=== PATIENT | female | born 1985 | race Two or more races ===

== ENCOUNTER 2016-09-12 14:35 | Inpatient (IN) | payer OTHER ==
[2016-09-12 18:33] VITALS: BMI 18.4
--- NOTE | 2016-09-12 20:08 | HP ---
COWS - Scale Resting Pulse: 2= [place] 101-120 Sweatin= Chills/Flushing Restless Observation: 3= Extraneous Movement Pupil Size: 0= Normal to Room Light Bone or Joint Aches: 2= Severe Diffuse Aches Runny Nose/ Eye Tearin= Nasal Congestion GI Upset > 30mins: 1= Stomach Cramp Tremor Observation: 2= Slight Tremor Visible Yawning Observation: 0= None Anxiety or Irritability: 2=Irritable/Anxious Goose Flesh Skin: 0=Smooth Skin COWS Score: 14 Admission [facility] Chief Complaint: WITHDRAWAL SX Allergies/Adverse Reactions: Allergies Allergy/AdvReac Type Severity Reaction Status Date / Time No Known Allergies Allergy Verified 09/12/16 19:40 History of Present Illness: 30 YEARS OLD FEMALE WITH LONG HISTORY OF OPIOID NICOTINE DEPENDENCE DENIES MEDICAL DENIES MENTAL ILLNESS IS ADMITTED TO DETOX Exam Limitations: No Limitations - Ebola screening Have you traveled outside of the country in the last 21 days: No Have you had contact with anyone from an Ebola affected area: No Have you been sick,other than usual withdrawal symptoms: No Do you have a fever: No - Review of Systems Constitutional: Chills, Changes in sleep, Weight Stable EENT: reports: No Symptoms Reported Respiratory: reports: No Symptoms reported Cardiac: reports: No Symptoms Reported GI: reports: Nausea, Poor Fluid Intake, Abdominal cramping : reports: No Symptoms Reported Musculoskeletal: reports: Back Pain, Joint Pain, Muscle Pain, Neck Pain Integumentary: reports: Change in Color (IV OPIOID HANDS) Neuro: reports: Tremors Endocrine: reports: No Symptoms Reported Psychiatric: reports: Judgement Intact Other Systems: Reviewed and Negative Patient History - Patient Medical History Hx Anemia: No Hx Asthma: No Hx Chronic Obstructive Pulmonary Disease (COPD): No Hx Cancer: No Hx Cardiac Disorders: No Hx Congestive Heart Failure: No Hx Hypertension: No Hx Hypercholesterolemia: No Hx Pacemaker: No HX Cerebrovascular Accident: No Hx Seizures: No Hx Dementia: No Hx Diabetes: No Hx Gastrointestinal Disorders: No Hx Liver Disease: No Hx Genitourinary Disorders: No Hx Sexually Transmitted Disorders: No Hx Renal Disease (ESRD): No Hx Thyroid Disease: No Hx Human Immunodeficiency Virus (HIV): No (LAST 01/07) Hx Hepatitis C: No Hx Depression: Yes (ANXIETY) Hx Suicide Attempt: No Hx Bipolar Disorder: No Hx Schizophrenia: No - Patient Surgical History Past Surgical History: Yes Hx Neurologic Surgery: No Hx Cataract Extraction: No Hx Cardiac Surgery: No Hx Lung Surgery: No Hx Breast Surgery: Yes (Augmentation in 2011) Hx Breast Biopsy: No Hx Abdominal Surgery: No Hx Appendectomy: No Hx Cholecystectomy: No Hx Genitourinary Surgery: No Hx Section: No Hx Orthopedic Surgery: No Hx Hysterectomy: No Anesthesia Reaction: No - PPD History Previous Implant?: Yes Documented Results: Negative w/proof Implanted On Prior [facility] Admission?: Yes Date: 03/24/16 PPD to be Administered?: No - Reproductive History Patient is a Female of Child Bearing Age (11 -55 yrs old): Yes Last Menstrual Period: 09/13/11 Patient : No - Smoking Cessation Smoking history: Current every day smoker Have you smoked in the past 12 months: Yes Aproximately how many cigarettes per day: 10 Cigars Per Day: 0 Hx Chewing Tobacco Use: No Initiated information on smoking cessation: Yes 'Breaking Loose' booklet given: 09/12/16 - Substance & Tx. History Hx Alcohol Use: No Hx Substance Use: Yes Substance Use Type: Cocaine, Marijuana, Opiates, Tranquilizers Hx Substance Use Treatment: Yes - Substances Abused Alprazolam (Xanax) Route: Oral Frequency: 3-6 times per week Amount used: 2mg Age of first use: 22 Date of Last Use: 09/11/16 Heroin Route: Injection Frequency: Daily Amount used: 20 BAGS Age of first use: 23 Date of Last Use: 09/11/16 Cocaine Route: Injection Frequency: Daily Amount used: 100$ Age of first use: 18 Date of Last Use: 09/12/16 Family Disease History - Family Disease History Family Disease History: Other: Mother ( OVER DOSE) Admission Physical Exam [facility] - Vital Signs Vital Signs: Vital Signs - 24 hr 09/12/16 18:31 Temperature 96.0 F L Pulse Rate 103 H Respiratory 18 Rate Blood Pressure 104/61 - Physical General Appearance: Yes: Appropriately Dressed, Mild Distress, Thin, Tremorous, Irritable, Sweating, Anxious HEENTM: Yes: Hearing grossly Normal, Normal ENT Inspection, Normocephalic, Normal Voice Respiratory: Yes: Chest Non-Tender, Lungs Clear, Normal Breath Sounds, No Respiratory Distress, No Accessory Muscle Use Neck: Yes: Supple, Trachea in good position Breast: Yes: Breasts Symetrical Cardiology: Yes: Regular Rhythm, S1, S2, Tachycardia (COCAINE) Abdominal: Yes: Non Tender, Soft Genitourinary: Yes: Within Normal Limits Back: Yes: Normal Inspection Musculoskeletal: Yes: full range of Motion, Gait Steady, Back pain, Muscle Pain Extremities: Yes: Normal Range of Motion, Non-Tender, Tremors, Other (HANDS IV OPIOID COCAINE) Neurological: Yes: Alert, Motor Strength 5/5, Normal Mood/Affect, Normal Response Integumentary: Yes: Warm Lymphatic: Yes: Within Normal Limits - Diagnostic (1) Nicotine dependence Current Visit: Yes Status: Acute Qualifiers: Nicotine product type: cigarettes Substance use status: in withdrawal Qualified Code(s): F17.213 - Nicotine dependence, cigarettes, with withdrawal (2) Opioid dependence with withdrawal Current Visit: Yes Status: Acute (3) Cocaine dependence, uncomplicated Current Visit: Yes Status: Chronic (4) Cannabis dependence, uncomplicated Current Visit: Yes Status: Chronic Cleared for Admission [facility] - Detox or Rehab [facility] Level of Care: Medically Managed Detox Regimen/Protocol: Methadone [facility] Breath Alcohol Content Breath Alcohol Content: 0 Urine Pregancy Test - Result Urine Test Results: Negative- NO Line Present Urine Drug Screen - Results Drug Screen Negative: No Urine Drug Screen Results: THC-Marijuana, DELIO-Cocaine, OPI-Opiates, AMP- Amphetamines, BZO-Benzodiazepines, OXY-Oxycodone
[2016-09-12] MEDS ORDERED: P-EPHED 60MG/TRIPROLIDI 2.5MG TABLET PO PRN (20:26)
[2016-09-12] MEDS ORDERED: MENTHOL/PHENOL 1 EACH UD MM PRN (20:26)
[2016-09-12] MEDS ORDERED: LOPERAMIDE HCL 2 MG CAPSULE PO PRN (20:26)
[2016-09-12] MEDS ORDERED: MAGNESIUM HYDROX 2400MG/30ML ORAL SUSPENSION 30 ML CUP PO PRN (20:26)
[2016-09-12] MEDS ORDERED: MAGNESIUM CITRATE 300 ML BOTTLE PO PRN (20:26)
[2016-09-12] MEDS ORDERED: METHADONE HCL 10 MG TABLET (FOR DETOX USE ONLY) PO ONE ×2 (20:26→23:00)
[2016-09-12] MEDS ORDERED: diphenhydrAMINE HCL 50 MG CAPSULE PO PRN (20:26)
[2016-09-12] MEDS ORDERED: NICOTINE POLACRILEX 2 MG GUM BC PRN (20:26)
[2016-09-12] MEDS ORDERED: MAG HYDROX/AL HYDROX/SIMETH 30 ML UNIT-DOSE CUP PO PRN (20:26)
[2016-09-12] MEDS ORDERED: guaiFENesin/D-METHORPHAN HB 10 ML UNIT-DOSE CUPS PO PRN (20:26)
[2016-09-12] MEDS ORDERED: IBUPROFEN 400 MG TABLET (FP) PO PRN (20:26)
[2016-09-12] MEDS ORDERED: ACETAMINOPHEN 325 MG TABLET (FP) PO PRN (20:26)
[2016-09-12] MEDS: diazePAM 5 MG TABLET PO PRN (21:00)
[2016-09-12] MEDS: THIAMINE HCL 100 MG TABLET (FP) PO SCH (22:45)
[2016-09-13] MEDS ORDERED: METHADONE HCL 10 MG TABLET (FOR DETOX USE ONLY) PO ONE (10:00)
[2016-09-13 10:10] LABS: MCHC 32.9 g/dl (32.0-36.0); MEAN PLT VOLUME 8.8 fl (7.5-11.1); PLATELET COUNT 216 K/MM3 (134-434); RDW 13.4 % (11.6-15.6); WHITE BLOOD COUNT 6.9 K/mm3 (4.0-10.0)
--- NOTE | 2016-09-13 10:18 | PN ---
[facility] COWS - Scale Resting Pulse: 1= [place] 81-100 Sweatin=Flushed/Facial Moisture Restless Observation: 1= Difficult to Sit Still Pupil Size: 1= Pupils >than Normal Bone or Joint Aches: 2= Severe Diffuse Aches Runny Nose/ Eye Tearin= Nasal Congestion GI Upset > 30mins: 1= Stomach Cramp Tremor Observation of Outstretched Hands: 1= Tremor [place], Not Seen Yawning Observation: 0= None Anxiety or Irritability: 2=Irritable/Anxious Goose Flesh Skin: 0=Smooth Skin COWS Score: 12 BHS Progress Note (SOAP) Subjective: interrupted, sleep, sweats, shakes , bodyaches Objective: 09/13/16 10:18 Vital Signs Temperature 96.8 F L 09/13/16 06:35 Pulse Rate 84 09/13/16 06:35 Respiratory Rate 16 09/13/16 06:35 Blood Pressure 96/56 09/13/16 06:35 O2 Sat by Pulse Oximetry (%) Laboratory Tests 09/13/16 07:00 WBC 6.9 RBC 4.73 Hgb 13.2 D Hct 40.2 MCV 85.0 MCHC 32.9 RDW 13.4 Plt Count 216 MPV 8.8 pending labs pt aox3 lying in bed in nad . Assessment: 09/13/16 10:19 withdrawal sx's Plan: cont. detox increase fluids f/up pending labs ensure bid
[2016-09-13 10:36] LABS: CALCIUM 9.2 mg/dL (8.5-10.1)
[2016-09-13 10:55] LABS: ALBUMIN 3.2 g/dl (3.4-5.0); ALK PHOS 78 U/L (45-117); ANION GAP 9 (8-16); BILIRUBIN,TOTAL 0.3 mg/dL (0.2-1.0); CO2 28 mmol/L (21-32); COCKROFT - GAULT 97.4865; CREATININE 0.7 mg/dL (0.55-1.02); GLUCOSE,RANDOM 89 mg/dL (74-106); SGOT/AST 29 U/L (15-37); SGPT/ALT 28 U/L (12-78); TOT PROT 7.5 g/dl (6.4-8.2)
[2016-09-13] MEDS: NICOTINE 14 MG/24 HOURS TOPICAL PATCH TD SCH (10:57)
[2016-09-13] MEDS: PRENATAL VITAMINS W/ FOLIC ACID TABLET (FP) PO SCH (10:57)
--- NOTE | 2016-09-13 11:45 | EKG ---
Test Reason : Blood Pressure : / mmHG Vent. Rate : 075 BPM Atrial Rate : 075 BPM P-R Int : 152 ms QRS Dur : 092 ms QT Int : 394 ms P-R-T Axes : 066 079 064 degrees QTc Int : 439 ms NORMAL SINUS RHYTHM NORMAL ECG NO PREVIOUS ECGS AVAILABLE Confirmed by MONIKA BATES MD ([id number]) on 09/13/2016 11:44:55 AM Referred By: Cj Hammond Confirmed By:MONIKA BATES MD
[2016-09-13] MEDS: diazePAM 5 MG TABLET PO PRN (22:35)
[2016-09-13] MEDS: THIAMINE HCL 100 MG TABLET (FP) PO SCH (22:36)
[2016-09-14] MEDS ORDERED: METHADONE HCL 5 MG TABLET (FOR DETOX USE ONLY) PO ONE (10:00)
[2016-09-14] MEDS: PRENATAL VITAMINS W/ FOLIC ACID TABLET (FP) PO SCH (10:39)
[2016-09-14] MEDS: diazePAM 5 MG TABLET PO PRN (10:40)
[2016-09-14 10:52] VITALS: TEMP 97.9
[2016-09-14] MEDS: NICOTINE 14 MG/24 HOURS TOPICAL PATCH TD SCH (11:18)
--- NOTE | 2016-09-14 11:30 | PN ---
[facility] COWS - Scale Resting Pulse: 1= [place] 81-100 Sweatin=Flushed/Facial Moisture Restless Observation: 1= Difficult to Sit Still Pupil Size: 0= Normal to Room Light Bone or Joint Aches: 2= Severe Diffuse Aches Runny Nose/ Eye Tearin= Runny Nose/Eyes GI Upset > 30mins: 1= Stomach Cramp Tremor Observation of Outstretched Hands: 2= Slight Tremor Visible Yawning Observation: 2= >3x During Session Anxiety or Irritability: 2=Irritable/Anxious Goose Flesh Skin: 0=Smooth Skin COWS Score: 15 BHS Progress Note (SOAP) Subjective: sweats shakes interrupted sleep agitation anxiety body aches Objective: 09/14/16 11:28 Vital Signs Temperature 97.9 F 09/14/16 10:51 Pulse Rate 82 09/14/16 10:51 Respiratory Rate 16 09/14/16 10:51 Blood Pressure 105/79 09/14/16 10:51 O2 Sat by Pulse Oximetry (%) Laboratory Tests 09/13/16 09/13/16 09/13/16 07:00 07:00 07:00 WBC 6.9 RBC 4.73 Hgb 13.2 D Hct 40.2 MCV 85.0 MCHC 32.9 RDW 13.4 Plt Count 216 MPV 8.8 Sodium 140 Potassium 5.0 D Chloride 103 Carbon Dioxide 28 Anion Gap 9 BUN 10 D Creatinine 0.7 Creat Clearance w eGFR > 60 Random Glucose 89 Calcium 9.2 Total Bilirubin 0.3 D AST 29 ALT 28 Alkaline Phosphatase 78 D Total Protein 7.5 D Albumin 3.2 L RPR Titer Nonreactive labs pending awake/alert ambulating no acute distress Assessment: 09/14/16 11:29 withdrawal sx Plan: continue detox increase fluids
[2016-09-14 14:24] VITALS: BP 108/72; PULSE 78
--- NOTE | 2016-09-14 14:30 | PN ---
[facility] Progress Note Note: pt states to RN that she is not ready for detox and wants to leave to get high. Pt refused to listen to staff and counselor tried to encouraged her to stay but insisted on leaving. Pt signed AMA.
--- NOTE | 2016-09-14 14:32 | DS ---
[facility] Detox Discharge Summary Admission Date: 09/12/16 Discharge Date: 09/14/16 - History Present History: Cannabis Dependence, Cocaine Dependence, Opioid Dependence - Physical Exam Results Vital Signs: Vital Signs Temperature 97.9 F 09/14/16 14:23 Pulse Rate 78 09/14/16 14:23 Respiratory Rate 16 09/14/16 14:23 Blood Pressure 108/72 09/14/16 14:23 O2 Sat by Pulse Oximetry (%) - Treatment Hospital Course: Discharged Condition Good - Medication Discharge Medications: Ambulatory Orders NK [No Known Home Medication] 09/12/16 - Diagnosis (1) Nicotine dependence Current Visit: Yes Status: Chronic Qualifiers: Nicotine product type: cigarettes Substance use status: uncomplicated Qualified Code(s): F17.210 - Nicotine dependence, cigarettes, uncomplicated (2) Opioid dependence with withdrawal Current Visit: Yes Status: Chronic (3) Cannabis dependence, uncomplicated Current Visit: Yes Status: Chronic (4) Cocaine dependence, uncomplicated Current Visit: Yes Status: Chronic (5) Multiple abrasions Current Visit: No Status: Acute (6) Drug-induced mood disorder Current Visit: No Status: Suspected - AMA Did Patient Leave Against Medical Advice: Yes
[2016-09-15] MEDS ORDERED: METHADONE HCL 5 MG TABLET (FOR DETOX USE ONLY) PO ONE (10:00)
[2016-09-16] MEDS ORDERED: METHADONE HCL 10 MG TABLET (FOR DETOX USE ONLY) PO ONE (10:00)
[2016-09-17] MEDS ORDERED: METHADONE HCL 5 MG TABLET (FOR DETOX USE ONLY) PO ONE (06:00)
== END 2016-09-14 14:30 | disposition left against medical advice (07) | DRG 770 ==
LOC: YASAS 14:35 → Y6N 19:55
PROVIDERS: ADMIT Internal Medicine; ATTEND Internal Medicine Addiction Medicine
PROC: HZ2ZZZZ Detoxification Services for Substance Abuse Treatment (ICD-10-PCS; principal; 2016-09-12)
DX: F11.23 Opioid dependence with withdrawal (principal); F14.20 Cocaine dependence, uncomplicated; F12.20 Cannabis dependence, uncomplicated; F17.210 Nicotine dependence, cigarettes, uncomplicated; F19.24 Other psychoactive substance dependence with psychoactive substance-induced mood disorder; R00.0 Tachycardia, unspecified
CPT/HCPCS: 36415; 80053; 85027; 86593; 93005; 93010

== ENCOUNTER 2017-09-25 16:37 | Inpatient (IN) | payer OTHER ==
[2017-09-25 17:55] VITALS: BMI 17.9
--- NOTE | 2017-09-25 20:44 | HP ---
COWS - Scale Resting Pulse: 1= [place] 81-100 Sweatin= Chills/Flushing Restless Observation: 1= Difficult to Sit Still Pupil Size: 1= Pupils >than Normal Bone or Joint Aches: 1= Mild Discomfort Runny Nose/ Eye Tearin= None GI Upset > 30mins: 0= None Tremor Observation: 1= Tremor [place], Not Seen Yawning Observation: 1= 1-2x During Session Anxiety or Irritability: 1=Feels Anxious/Irritable Goose Flesh Skin: 0=Smooth Skin COWS Score: 8 CIWA Score - CIWA Score Nausea/Vomitin-No Nausea/No Vomiting Muscle Tremors: 2 Anxiety: 2 Agitation: 2 Paroxysmal Sweats: 2 Orientation: 0-Oriented Tacttile Disturbances: 1-Very Mild Itch/Numbness Auditory Disturbances: 0-None Visual Disturbances: 0-None Headache: 0-None Present CIWA-Ar Total Score: 9 Admission ROS S - HPI Chief Complaint: withdrawal symptoms Allergies/Adverse Reactions: Allergies Allergy/AdvReac Type Severity Reaction Status Date / Time No Known Allergies Allergy Verified 09/25/17 19:05 History of Present Illness: 31 yo female with hc of xanax , IV heroin, and cocaine dependence is here seeking detox. Denies suicidal / homicidal ideation or suicide attempts. Reports no other medical or psychiatric history aside from Insomnia. Reports period of hallucinations while consuming cocaine. Last detox at [facility] 2 months ago. Reports no significant period of sobriety. Denies hx of seizures, blackouts or overdose. Exam Limitations: No Limitations - Ebola screening Have you traveled outside of the country in the last 21 days: No Have you had contact with anyone from an Ebola affected area: No Have you been sick,other than usual withdrawal symptoms: No Do you have a fever: No - Review of Systems Constitutional: Chills, Loss of Appetite EENT: reports: No Symptoms Reported Respiratory: reports: No Symptoms reported Cardiac: reports: No Symptoms Reported GI: reports: Poor Appetite, Poor Fluid Intake : reports: No Symptoms Reported Musculoskeletal: reports: Back Pain, Joint Pain Integumentary: reports: No Symptoms Reported Neuro: reports: No Symptoms reported Endocrine: reports: Increased Thirst Hematology: reports: No Symptoms Reported Psychiatric: reports: Orientated x3, Anxious Other Systems: Reviewed and Negative Patient History - Patient Medical History Hx Anemia: No Hx Asthma: No Hx Chronic Obstructive Pulmonary Disease (COPD): No Hx Cancer: No Hx Cardiac Disorders: No Hx Congestive Heart Failure: No Hx Hypertension: No Hx Hypercholesterolemia: No Hx Pacemaker: No HX Cerebrovascular Accident: No Hx Seizures: No Hx Dementia: No Hx Diabetes: No Hx Gastrointestinal Disorders: No Hx Liver Disease: No Hx Genitourinary Disorders: No Hx Sexually Transmitted Disorders: No Hx Renal Disease (ESRD): No Hx Thyroid Disease: No Hx Human Immunodeficiency Virus (HIV): No Hx Hepatitis C: No Hx Depression: Yes (ANXIETY) Hx Suicide Attempt: No Hx Bipolar Disorder: No Hx Schizophrenia: No - Patient Surgical History Past Surgical History: Yes Hx Neurologic Surgery: No Hx Cataract Extraction: No Hx Cardiac Surgery: No Hx Lung Surgery: No Hx Breast Surgery: Yes (Augmentation in 2011) Hx Breast Biopsy: No Hx Abdominal Surgery: No Hx Appendectomy: No Hx Cholecystectomy: No Hx Genitourinary Surgery: No Hx Section: No Hx Orthopedic Surgery: No Hx Hysterectomy: No Anesthesia Reaction: No - PPD History Previous Implant?: Yes Documented Results: Negative w/proof Date: 03/24/16 PPD to be Administered?: Yes - Reproductive History Patient is a Female of Child Bearing Age (11 -55 yrs old): Yes Last Menstrual Period: 09/12/17 (amonorrhea) Patient : No - Smoking Cessation Smoking history: Current every day smoker Have you smoked in the past 12 months: Yes Aproximately how many cigarettes per day: 10 Cigars Per Day: 0 Hx Chewing Tobacco Use: No Initiated information on smoking cessation: Yes 'Breaking Loose' booklet given: 09/25/17 - Substance & Tx. History Hx Alcohol Use: Yes Hx Substance Use: Yes Substance Use Type: Cocaine, Heroin, Tranquilizers Hx Substance Use Treatment: Yes ([facility] 2 months ago ) - Substances Abused Heroin Route: Injection Frequency: Daily Amount used: 20 BAGS Age of first use: 26 Date of Last Use: 09/25/17 Alprazolam (Xanax) Route: Oral Frequency: Daily Amount used: 4mg Age of first use: 23 Date of Last Use: 09/25/17 Cocaine Route: Injection Frequency: Daily Amount used: 0.5mg Age of first use: 17 Date of Last Use: 09/25/17 Family Disease History - Family Disease History Family Disease History: Diabetes: Father (alive ), Heart Disease: Father, Other : Father, Mother ( OVER DOSE) Admission Physical Exam [facility] - Vital Signs Vital Signs: Vital Signs - 24 hr 09/25/17 17:53 Temperature 98.7 F Pulse Rate 86 Respiratory 18 Rate Blood Pressure 104/67 - Physical General Appearance: Yes: Disheveled, Mild Distress, Thin, Anxious HEENTM: Yes: EOMI, Hearing grossly Normal, Normal ENT Inspection, Normocephalic , Normal Voice, MARY, Pharynx Normal, Tm's normal Respiratory: Yes: Chest Non-Tender, Lungs Clear, Normal Breath Sounds, No Respiratory Distress, No Accessory Muscle Use Neck: Yes: Within Normal Limits Breast: Yes: Breast Exam Deferred Cardiology: Yes: Regular Rhythm, Regular Rate Abdominal: Yes: Normal Bowel Sounds, Non Tender, Flat, Soft Genitourinary: Yes: Within Normal Limits Back: Yes: Normal Inspection Musculoskeletal: Yes: full range of Motion, Gait Steady, Pelvis Stable Extremities: Yes: Normal Capillary Refill, Normal Inspection, Normal Range of Motion, Non-Tender Neurological: Yes: steam gigger II-XII NML intact, Fully Oriented, Alert, Motor Strength 5/5, Depressed Affect Integumentary: Yes: Track Felipe (bilateral forearms and hands,no signs of infection present) Lymphatic: Yes: Within Normal Limits - Diagnostic (1) IVDU (intravenous drug user) Current Visit: Yes Status: Acute (2) Sedative, hypnotic or anxiolytic dependence with withdrawal, unspecified Current Visit: Yes Status: Acute (3) Amenorrhea Current Visit: Yes Status: Acute (4) Cocaine dependence, uncomplicated Current Visit: Yes Status: Chronic (5) Nicotine dependence Current Visit: Yes Status: Chronic Qualifiers: Nicotine product type: cigarettes Substance use status: uncomplicated Qualified Code(s): F17.210 - Nicotine dependence, cigarettes, uncomplicated (6) Opioid dependence with withdrawal Current Visit: Yes Status: Acute (7) Low BMI Current Visit: Yes Status: Acute Cleared for Admission [facility] - Detox or Rehab [facility] Level of Care: Medically Supervised Detox Regimen/Protocol: Methadone/Valium [facility] Breath Alcohol Content Breath Alcohol Content: 0 Urine Pregancy Test - Result Urine Test Results: Negative- NO Line Present Urine Drug Screen - Results Drug Screen Negative: No Urine Drug Screen Results: THC-Marijuana, DELIO-Cocaine, OPI-Opiates, BZO- Benzodiazepines, MTD-Methadone, OXY-Oxycodone
[2017-09-25] MEDS ORDERED: guaiFENesin/D-METHORPHAN HB 10 ML UNIT-DOSE CUPS PO PRN (20:48)
[2017-09-25] MEDS ORDERED: NICOTINE POLACRILEX 2 MG GUM BC PRN (20:48)
[2017-09-25] MEDS ORDERED: MENTHOL/PHENOL 1 EACH UD MM PRN (20:48)
[2017-09-25] MEDS ORDERED: P-EPHED 60MG/TRIPROLIDI 2.5MG TABLET PO PRN (20:48)
[2017-09-25] MEDS ORDERED: MAGNESIUM HYDROX 2400MG/30ML ORAL SUSPENSION 30 ML CUP PO PRN (20:48)
[2017-09-25] MEDS ORDERED: hydrOXYzine PAMOATE 50 MG CAPSULE (FP) PO PRN (20:48)
[2017-09-25] MEDS ORDERED: IBUPROFEN 400 MG TABLET (FP) PO PRN (20:48)
[2017-09-25] MEDS ORDERED: MAGNESIUM CITRATE 300 ML BOTTLE PO PRN (20:48)
[2017-09-25] MEDS ORDERED: diazePAM 5 MG TABLET PO PRN (20:48)
[2017-09-25] MEDS ORDERED: diazePAM 5 MG TABLET PO ONE (20:48)
[2017-09-25] MEDS ORDERED: ACETAMINOPHEN 325 MG TABLET (FP) PO PRN (20:48)
[2017-09-25] MEDS ORDERED: LOPERAMIDE HCL 2 MG CAPSULE PO PRN (20:48)
[2017-09-25] MEDS ORDERED: MAG HYDROX/AL HYDROX/SIMETH 30 ML UNIT-DOSE CUP PO PRN (20:48)
[2017-09-25] MEDS ORDERED: MELATONIN 5 MG TABLETS PO PRN (22:00)
[2017-09-25] MEDS ORDERED: METHADONE HCL 10 MG TABLET (FOR DETOX USE ONLY) ONE (22:54)
[2017-09-25] MEDS: METHADONE HCL 10 MG TABLET (FOR DETOX USE ONLY) PO ONE (22:59)
[2017-09-25] MEDS ORDERED: METHADONE HCL 10 MG TABLET (FOR DETOX USE ONLY) PO ONE (23:00)
[2017-09-25] MEDS: diazePAM 5 MG TABLET PO SCH (23:00)
[2017-09-25] MEDS: THIAMINE HCL 100 MG TABLET (FP) PO SCH (23:18)
[2017-09-26 02:22] LABS: URINE APPEARANCE CLOUDY; URINE BILIRUBIN NEGATIVE (<2.0 mg/dL); URINE BLOOD 2+ (NEGATIVE); URINE COLOR AMBER; URINE GLUCOSE (UA) NEGATIVE (NEGATIVE); URINE KETONE NEGATIVE (NEGATIVE); URINE LEUK ESTERASE TRACE (NEGATIVE); URINE NITRITE NEGATIVE (NEGATIVE); URINE PROTEIN NEGATIVE (NEGATIVE); URINE UROBILINOGEN 4.0 E.U/dl mg/dL (0.2-1.0)
[2017-09-26 02:55] LABS: CALCIUM OXALATE CRYSTALS MODERATE /hpf (NONE SEEN); EPI CELLS RARE /HPF (FEW); URINE MUCUS MODERATE
[2017-09-26] MEDS: diazePAM 5 MG TABLET PO SCH ×3 (06:01→22:45)
--- NOTE | 2017-09-26 09:37 | PN ---
[facility] CIWA - CIWA Score Nausea/Vomitin-No Nausea/No Vomiting Muscle Tremors: 3 Anxiety: 2 Agitation: 2 Paroxysmal Sweats: 1-Minimal Palms Moist Orientation: 0-Oriented Tacttile Disturbances: 1-Very Mild Itch/Numbness Auditory Disturbances: 0-None Visual Disturbances: 0-None Headache: 0-None Present CIWA-Ar Total Score: 9 [facility] COWS - Scale Resting Pulse: 0= [place] 80 or Below Sweatin= Chills/Flushing Restless Observation: 1= Difficult to Sit Still Pupil Size: 0= Normal to Room Light Bone or Joint Aches: 1= Mild Discomfort Runny Nose/ Eye Tearin= Nasal Congestion GI Upset > 30mins: 2= Nausea/Diarrhea Tremor Observation of Outstretched Hands: 1= Tremor [place], Not Seen Yawning Observation: 1= 1-2x During Session Anxiety or Irritability: 2=Irritable/Anxious Goose Flesh Skin: 0=Smooth Skin COWS Score: 10 [facility] Progress Note (SOAP) Subjective: low energy sweat tremor gi distress irritable anxiety restlessness Objective: 09/26/17 09:36 Vital Signs Temperature 97.7 F 09/26/17 09:26 Pulse Rate 75 09/26/17 09:26 Respiratory Rate 16 09/26/17 09:26 Blood Pressure 103/73 09/26/17 09:26 O2 Sat by Pulse Oximetry (%) Laboratory Last Values Urine Color [place] 09/25/17 Unknown Urine Appearance Cloudy 09/25/17 Unknown Urine pH 6.0 (5.0-8.0) 09/25/17 Unknown Ur Specific [place] 1.024 (1.001-1.035) 09/25/17 Unknown Urine Protein Negative (NEGATIVE) 09/25/17 Unknown Urine Glucose (UA) Negative (NEGATIVE) 09/25/17 Unknown Urine Ketones Negative (NEGATIVE) 09/25/17 Unknown Urine Blood 2+ (NEGATIVE) H 09/25/17 Unknown Urine Nitrite Negative (NEGATIVE) 09/25/17 Unknown Urine Bilirubin Negative (<2.0 mg/dL) 09/25/17 Unknown Urine Urobilinogen 4.0 e.u/dl mg/dL (0.2-1.0) H 09/25/17 Unknown Ur Leukocyte Esterase Trace (NEGATIVE) 09/25/17 Unknown Urine WBC (Auto) 6 /hpf (3-5) 09/25/17 Unknown Urine RBC (Auto) 49 /hpf (0-3) 09/25/17 Unknown Ur Epithelial Cells Rare /HPF (FEW) 09/25/17 Unknown Calcium Oxalate Crystal Moderate /hpf (NONE SEEN) 09/25/17 Unknown Urine Mucus Moderate 09/25/17 Unknown lab n oted increase oral fluid Assessment: 09/26/17 09:39 alcohol and opiate withdrawal sx 09/26/17 09:39 oxalate urination Plan: continue detox increase oral fluid
[2017-09-26] MEDS ORDERED: METHADONE HCL 10 MG TABLET (FOR DETOX USE ONLY) PO SCH (10:00)
[2017-09-26 10:13] LABS: HEMATOCRIT 35.1 % (32.4-45.2); HEMOGLOBIN 11.5 GM/dL (10.7-15.3); MCH 27.8 pg (25.7-33.7); MCHC 32.8 g/dl (32.0-36.0); MEAN CELL VOLUME 84.6 fl (80-96); MEAN PLT VOLUME 8.7 fl (7.5-11.1); PLATELET COUNT 211 K/MM3 (134-434); RBC 4.15 M/mm3 (3.60-5.2); RDW 14.7 % (11.6-15.6); WHITE BLOOD COUNT 5.2 K/mm3 (4.0-10.0)
[2017-09-26] MEDS: PRENATAL VITAMINS W/ FOLIC ACID TABLET (FP) PO SCH (11:06)
[2017-09-26] MEDS: NICOTINE 14 MG/24 HOURS TOPICAL PATCH TD SCH (11:07)
--- NOTE | 2017-09-26 11:18 | CONSULT ---
[facility] Psychiatric Consult - Data Date of interview: 09/26/17 Admission source: [facility] Identifying data: Patient is a 31 year old single female, mother of one, unemployed, homeless, and not receiving financial assistance. This is one of multiple admissions for patient. Pt. admitted to for cocaine, opiate, and benzodiazepine dependence. Substance Abuse History: Following information confirmed with Ms. Helm: - Smoking Cessation. Smoking history: Current every day smoker. Have you smoked in the past 12 months: Yes. Aproximately how many cigarettes per day: 10. Cigars Per Day: 0. Hx Chewing Tobacco Use: No. Initiated information on smoking cessation: Yes. 'Breaking Loose' booklet given: 09/25/17. - Substance & Tx. History. Hx Alcohol Use: Yes. Hx Substance Use: Yes. Substance Use Type : Cocaine, Heroin, Tranquilizers. Hx Substance Use Treatment: Yes ([facility] 2 months ago ). - Substances Abused. Heroin. Route: Injection. Frequency : Daily. Amount used: 20 BAGS. Age of first use: 26. Date of Last Use: . Alprazolam (Xanax). Route: Oral. Frequency: Daily. Amount used: 4mg. Age of first use: 23. Date of Last Use: 09/25/17. Cocaine. Route: Injection. Frequency: Daily. Amount used: 0.5mg. Age of first use: 17. Date of Last Use: 09/25/17 Medical History: Denies. Psychiatric History: Patient reports one psychiatric hospitalization at 11 years of age after overdosing on pills which resulted in a 2 week admission at a psychiatric facility in [place].Pt. denies h/o psychiatric hospitalization as adult. States she was at [facility] for three days in the psychiatric emergency room approximately three months ago after experiencing auditory hallucinations from drug use. Patient denies h/o outpatient care and denies taking psychotropic medications. Physical/Sexual Abuse/Trauma History: Denies. Mental Status Exam - Mental Status Exam Alert and Oriented to: Time, Place, Person Cognitive Function: Good Patient Appearance: Well Groomed Mood: Euthymic Affect: Mood Congruent Patient Behavior: Cooperative Speech Pattern: Appropriate Voice Loudness: Normal Thought Process: Intact, Goal Oriented Thought Disorder: Not Present Hallucinations: Denies Suicidal Ideation: Denies Homicidal Ideation: Denies Insight/Judgement: Poor Sleep: Poorly Appetite: Fair Muscle strength/Tone: Normal Gait/Station: Normal Psychiatric Findings - Problem List (Procious 1, 2,3) (1) Opioid dependence with withdrawal Current Visit: Yes Status: Acute (2) Sedative, hypnotic or anxiolytic dependence with withdrawal, unspecified Current Visit: Yes Status: Acute (3) Cocaine dependence, uncomplicated Current Visit: Yes Status: Chronic (4) Nicotine dependence Current Visit: Yes Status: Chronic Qualifiers: Nicotine product type: cigarettes Substance use status: uncomplicated Qualified Code(s): F17.210 - Nicotine dependence, cigarettes, uncomplicated (5) Substance-induced sleep disorder Current Visit: Yes Status: Acute (6) Nicotine dependence Current Visit: Yes Status: Chronic (7) Drug-induced mood disorder Current Visit: Yes Status: Suspected - Initial Treatment Plan Initial Treatment Plan: Psychoeducation provided. Detoxification in progress. Trazodone 50mg qhs ordered. Benefits and side effects discussed. Verbal consent given. Will continue to monitor.
[2017-09-26 11:57] LABS: CHLORIDE 107 mmol/L (98-107); POTASSIUM 3.9 mmol/L (3.5-5.1); SODIUM 140 mmol/L (136-145)
[2017-09-26 12:28] LABS: ALBUMIN 3.1 g/dl (3.4-5.0); ALK PHOS 74 U/L (45-117); ANION GAP 8 (8-16); BILIRUBIN,TOTAL 0.2 mg/dL (0.2-1.0); BLOOD UREA NITROGEN 7 mg/dL (7-18); CALCIUM 8.9 mg/dL (8.5-10.1); CO2 25 mmol/L (21-32); CREATININE 0.6 mg/dL (0.55-1.02); GLUCOSE,RANDOM 88 mg/dL (74-106); SGOT/AST 26 U/L (15-37); SGPT/ALT 27 U/L (12-78); TOT PROT 7.2 g/dl (6.4-8.2)
--- NOTE | 2017-09-26 13:30 | EKG ---
Test Reason : Blood Pressure : / mmHG Vent. Rate : 069 BPM Atrial Rate : 069 BPM P-R Int : 172 ms QRS Dur : 090 ms QT Int : 424 ms P-R-T Axes : 066 076 073 degrees QTc Int : 454 ms NORMAL SINUS RHYTHM NORMAL ECG WHEN COMPARED WITH ECG OF 12-SEP-2016 19:56, NO SIGNIFICANT CHANGE WAS FOUND Confirmed by MD BHAVANI, NIKHIL ([id number]) on 09/26/2017 1:29:47 PM Referred By: Confirmed By:NIKHIL BECKHAM MD
[2017-09-26] MEDS: THIAMINE HCL 100 MG TABLET (FP) PO SCH (22:45)
[2017-09-26] MEDS: traZODone HCL 50 MG TABLET (FP) PO SCH (22:45)
[2017-09-27] MEDS: PRENATAL VITAMINS W/ FOLIC ACID TABLET (FP) PO SCH (10:34)
[2017-09-27] MEDS: diazePAM 5 MG TABLET PO SCH ×2 (10:34→22:54)
[2017-09-27] MEDS: METHADONE HCL 5 MG TABLET (FOR DETOX USE ONLY) PO SCH (10:34)
[2017-09-27] MEDS: NICOTINE 14 MG/24 HOURS TOPICAL PATCH TD SCH (10:35)
[2017-09-27] MEDS ORDERED: BACLOFEN 10 MG TABLET (FP) PO PRN (11:48)
--- NOTE | 2017-09-27 12:01 | PN ---
[facility] CIWA - CIWA Score Nausea/Vomitin-No Nausea/No Vomiting Muscle Tremors: 3 Anxiety: 2 Agitation: 2 Paroxysmal Sweats: 1-Minimal Palms Moist Orientation: 0-Oriented Tacttile Disturbances: 0-None Auditory Disturbances: 0-None Visual Disturbances: 0-None Headache: 0-None Present CIWA-Ar Total Score: 8 BHS COWS - Scale Resting Pulse: 0= OK 80 or Below Sweatin= Chills/Flushing Restless Observation: 1= Difficult to Sit Still Pupil Size: 0= Normal to Room Light Bone or Joint Aches: 1= Mild Discomfort Runny Nose/ Eye Tearin= Nasal Congestion GI Upset > 30mins: 1= Stomach Cramp Tremor Observation of Outstretched Hands: 1= Tremor Alpha, Not Seen Yawning Observation: 2= >3x During Session Anxiety or Irritability: 1=Feels Anxious/Irritable Goose Flesh Skin: 0=Smooth Skin COWS Score: 9 S Progress Note (SOAP) Subjective: sweat tremor anxiety restlessness joint pain body ache Objective: 09/27/17 12:03 Vital Signs Temperature 97.9 F 09/27/17 11:06 Pulse Rate 78 09/27/17 11:06 Respiratory Rate 16 09/27/17 11:06 Blood Pressure 112/60 09/27/17 11:06 O2 Sat by Pulse Oximetry (%) Laboratory Last Values WBC 5.2 K/mm3 (4.0-10.0) 09/26/17 07:30 RBC 4.15 M/mm3 (3.60-5.2) 09/26/17 07:30 Hgb 11.5 GM/dL (10.7-15.3) D 09/26/17 07:30 Hct 35.1 % (32.4-45.2) 09/26/17 07:30 MCV 84.6 fl (80-96) 09/26/17 07:30 MCH 27.8 pg (25.7-33.7) 09/26/17 07:30 MCHC 32.8 g/dl (32.0-36.0) 09/26/17 07:30 RDW 14.7 % (11.6-15.6) 09/26/17 07:30 Plt Count 211 K/MM3 (134-434) 09/26/17 07:30 MPV 8.7 fl (7.5-11.1) 09/26/17 07:30 Sodium 140 mmol/L (136-145) 09/26/17 07:30 Potassium 3.9 mmol/L (3.5-5.1) 09/26/17 07:30 Chloride 107 mmol/L (98-107) 09/26/17 07:30 Carbon Dioxide 25 mmol/L (21-32) 09/26/17 07:30 Anion Gap 8 (8-16) 09/26/17 07:30 BUN 7 mg/dL (7-18) 09/26/17 07:30 Creatinine 0.6 mg/dL (0.55-1.02) 09/26/17 07:30 Creat Clearance w eGFR > 60 (>60) 09/26/17 07:30 Random Glucose 88 mg/dL (74-106) 09/26/17 07:30 Calcium 8.9 mg/dL (8.5-10.1) 09/26/17 07:30 Total Bilirubin 0.2 mg/dL (0.2-1.0) D 09/26/17 07:30 AST 26 U/L (15-37) 09/26/17 07:30 ALT 27 U/L (12-78) 09/26/17 07:30 Alkaline Phosphatase 74 U/L (45-117) 09/26/17 07:30 Total Protein 7.2 g/dl (6.4-8.2) 09/26/17 07:30 Albumin 3.1 g/dl (3.4-5.0) L 09/26/17 07:30 Urine Color [place] 09/25/17 Unknown Urine Appearance Cloudy 09/25/17 Unknown Urine pH 6.0 (5.0-8.0) 09/25/17 Unknown Ur Specific [place] 1.024 (1.001-1.035) 09/25/17 Unknown Urine Protein Negative (NEGATIVE) 09/25/17 Unknown Urine Glucose (UA) Negative (NEGATIVE) 09/25/17 Unknown Urine Ketones Negative (NEGATIVE) 09/25/17 Unknown Urine Blood 2+ (NEGATIVE) H 09/25/17 Unknown Urine Nitrite Negative (NEGATIVE) 09/25/17 Unknown Urine Bilirubin Negative (<2.0 mg/dL) 09/25/17 Unknown Urine Urobilinogen 4.0 e.u/dl mg/dL (0.2-1.0) H 09/25/17 Unknown Ur Leukocyte Esterase Trace (NEGATIVE) 09/25/17 Unknown Urine WBC (Auto) 6 /hpf (3-5) 09/25/17 Unknown Urine RBC (Auto) 49 /hpf (0-3) 09/25/17 Unknown Ur Epithelial Cells Rare /HPF (FEW) 09/25/17 Unknown Calcium Oxalate Crystal Moderate /hpf (NONE SEEN) 09/25/17 Unknown Urine Mucus Moderate 09/25/17 Unknown RPR Titer Nonreactive (NONREACTIVE) 09/26/17 07:30 lab noted Assessment: 09/27/17 12:04 withdrawal sx Plan: continue detox
[2017-09-27] MEDS: SULFAMETHOXAZOLE/TRIMETHOPRIM 800MG/160MG D.S. TABLET PO SCH ×2 (12:46→22:51)
[2017-09-27] MEDS: LIDOCAINE 5% TOPICAL PATCH TP SCH (12:46)
[2017-09-27] MEDS ORDERED: LIDOCAINE PATCH REMOVAL MC SCH (22:00)
[2017-09-27] MEDS: THIAMINE HCL 100 MG TABLET (FP) PO SCH (22:51)
[2017-09-27] MEDS: traZODone HCL 50 MG TABLET (FP) PO SCH (22:53)
[2017-09-28 07:13] VITALS: BP 98/63
[2017-09-28 09:23] VITALS: PULSE 67; TEMP 98
[2017-09-28] MEDS: PRENATAL VITAMINS W/ FOLIC ACID TABLET (FP) PO SCH (09:58)
[2017-09-28] MEDS: SULFAMETHOXAZOLE/TRIMETHOPRIM 800MG/160MG D.S. TABLET PO SCH (09:58)
[2017-09-28] MEDS: diazePAM 5 MG TABLET PO SCH (09:59)
[2017-09-28] MEDS: LIDOCAINE 5% TOPICAL PATCH TP SCH (09:59)
[2017-09-28] MEDS: METHADONE HCL 5 MG TABLET (FOR DETOX USE ONLY) PO SCH (09:59)
[2017-09-28] MEDS: NICOTINE 14 MG/24 HOURS TOPICAL PATCH TD SCH (09:59)
--- NOTE | 2017-09-28 10:13 | DS ---
[facility] Detox Discharge Summary Admission Date: 09/25/17 Discharge Date: 09/28/17 - History Present History: Opioid Dependence, Sedative Dependence Additional Comments: 31 years old female admitted 09/25/17 for benzo and opiate withdrawal sx insists to determinate the opiate and benzo detox regimen that the dosage of detox regimen is too low and the provider can not raise the methadone dosage and valium dosage patient is alert oriented x 3 no acute distress health teaching on uti addiction related physical and mental illness - Physical Exam Results Vital Signs: Vital Signs Temperature 98 F 09/28/17 09:22 Pulse Rate 67 09/28/17 09:22 Respiratory Rate 16 09/28/17 09:22 Blood Pressure 98/63 09/28/17 09:22 O2 Sat by Pulse Oximetry (%) Pertinent Admission Physical Exam Findings: opiate and benzo withdrawal sx Vital Signs Temperature 98 F 09/28/17 09:22 Pulse Rate 67 09/28/17 09:22 Respiratory Rate 16 09/28/17 09:22 Blood Pressure 98/63 09/28/17 09:22 O2 Sat by Pulse Oximetry (%) Laboratory Last Values WBC 5.2 K/mm3 (4.0-10.0) 09/26/17 07:30 RBC 4.15 M/mm3 (3.60-5.2) 09/26/17 07:30 Hgb 11.5 GM/dL (10.7-15.3) D 09/26/17 07:30 Hct 35.1 % (32.4-45.2) 09/26/17 07:30 MCV 84.6 fl (80-96) 09/26/17 07:30 MCH 27.8 pg (25.7-33.7) 09/26/17 07:30 MCHC 32.8 g/dl (32.0-36.0) 09/26/17 07:30 RDW 14.7 % (11.6-15.6) 09/26/17 07:30 Plt Count 211 K/MM3 (134-434) 09/26/17 07:30 MPV 8.7 fl (7.5-11.1) 09/26/17 07:30 Sodium 140 mmol/L (136-145) 09/26/17 07:30 Potassium 3.9 mmol/L (3.5-5.1) 09/26/17 07:30 Chloride 107 mmol/L (98-107) 09/26/17 07:30 Carbon Dioxide 25 mmol/L (21-32) 09/26/17 07:30 Anion Gap 8 (8-16) 09/26/17 07:30 BUN 7 mg/dL (7-18) 09/26/17 07:30 Creatinine 0.6 mg/dL (0.55-1.02) 09/26/17 07:30 Creat Clearance w eGFR > 60 (>60) 09/26/17 07:30 Random Glucose 88 mg/dL (74-106) 09/26/17 07:30 Calcium 8.9 mg/dL (8.5-10.1) 09/26/17 07:30 Total Bilirubin 0.2 mg/dL (0.2-1.0) D 09/26/17 07:30 AST 26 U/L (15-37) 09/26/17 07:30 ALT 27 U/L (12-78) 09/26/17 07:30 Alkaline Phosphatase 74 U/L (45-117) 09/26/17 07:30 Total Protein 7.2 g/dl (6.4-8.2) 09/26/17 07:30 Albumin 3.1 g/dl (3.4-5.0) L 09/26/17 07:30 Urine Color [place] 09/25/17 Unknown Urine Appearance Cloudy 09/25/17 Unknown Urine pH 6.0 (5.0-8.0) 09/25/17 Unknown Ur Specific [place] 1.024 (1.001-1.035) 09/25/17 Unknown Urine Protein Negative (NEGATIVE) 09/25/17 Unknown Urine Glucose (UA) Negative (NEGATIVE) 09/25/17 Unknown Urine Ketones Negative (NEGATIVE) 09/25/17 Unknown Urine Blood 2+ (NEGATIVE) H 09/25/17 Unknown Urine Nitrite Negative (NEGATIVE) 09/25/17 Unknown Urine Bilirubin Negative (<2.0 mg/dL) 09/25/17 Unknown Urine Urobilinogen 4.0 e.u/dl mg/dL (0.2-1.0) H 09/25/17 Unknown Ur Leukocyte Esterase Trace (NEGATIVE) 09/25/17 Unknown Urine WBC (Auto) 6 /hpf (3-5) 09/25/17 Unknown Urine RBC (Auto) 49 /hpf (0-3) 09/25/17 Unknown Ur Epithelial Cells Rare /HPF (FEW) 09/25/17 Unknown Calcium Oxalate Crystal Moderate /hpf (NONE SEEN) 09/25/17 Unknown Urine Mucus Moderate 09/25/17 Unknown RPR Titer Nonreactive (NONREACTIVE) 09/26/17 07:30 HIV 1&2 Antibody Screen Negative 09/27/17 06:00 HIV P24 Antigen Negative 09/27/17 06:00 lab noted uti - Treatment Hospital Course: Detox Protocol Followed, Responded well Patient has Accepted a Rehab Referral to: [facility] - Medication Discharge Medications: Ambulatory Orders Sulfamethoxazole/Trimethoprim [Bactrim DS -] 1 each PO BID #10 tablet 09/28/17 - Diagnosis (1) Opioid dependence with withdrawal Current Visit: Yes Status: Acute (2) Sedative, hypnotic or anxiolytic dependence with withdrawal, unspecified Current Visit: Yes Status: Acute (3) Nicotine dependence Current Visit: Yes Status: Acute Qualifiers: Nicotine product type: cigarettes Substance use status: in withdrawal Qualified Code(s): F17.213 - Nicotine dependence, cigarettes, with withdrawal (4) UTI (urinary tract infection) Current Visit: Yes Status: Acute Qualifiers: Urinary tract infection type: site unspecified Hematuria presence: without hematuria Qualified Code(s): N39.0 - Urinary tract infection, site not specified - AMA Did Patient Leave Against Medical Advice: Yes
[2017-09-29] MEDS ORDERED: METHADONE HCL 10 MG TABLET (FOR DETOX USE ONLY) PO SCH (10:00)
[2017-09-29] MEDS ORDERED: diazePAM 5 MG TABLET PO SCH (10:00)
[2017-09-30] MEDS ORDERED: METHADONE HCL 5 MG TABLET (FOR DETOX USE ONLY) PO SCH (06:00)
== END 2017-09-28 10:00 | disposition left against medical advice (07) | DRG 770 ==
LOC: YASAS 16:37 → Y6N 20:17
PROVIDERS: ADMIT Surgery; ATTEND Surgery
PROC: HZ2ZZZZ Detoxification Services for Substance Abuse Treatment (ICD-10-PCS; principal; 2017-09-25)
DX: F11.23 Opioid dependence with withdrawal (principal); F13.230 Sedative, hypnotic or anxiolytic dependence with withdrawal, uncomplicated; F14.20 Cocaine dependence, uncomplicated; F17.213 Nicotine dependence, cigarettes, with withdrawal; F19.24 Other psychoactive substance dependence with psychoactive substance-induced mood disorder; F19.282 Other psychoactive substance dependence with psychoactive substance-induced sleep disorder; N91.2 Amenorrhea, unspecified; N39.0 Urinary tract infection, site not specified; R82.99 Other abnormal findings in urine; R63.6 Underweight; Z68.1 Body mass index [BMI] 19.9 or less, adult
CPT/HCPCS: 36415; 80053; 81003; 81015; 85027; 86593; 87389; 93005; 93010; J0475

== ENCOUNTER 2021-08-17 15:00 | Inpatient (IN) | payer OTHER ==
[2021-08-17] MEDS ORDERED: MAGNESIUM HYDROX 2400MG/30ML ORAL SUSPENSION 30 ML CUP PO PRN (16:01)
[2021-08-17] MEDS ORDERED: BISMUTH SUBSALICYLATE 524 MG/30 ML PO PRN (16:01)
[2021-08-17] MEDS ORDERED: BUPRENORPHINE HCL 150 MCG, BUPRENORPHINE HCL 75 MCG BC ONE (16:01)
[2021-08-17] MEDS ORDERED: diazePAM 5 MG TABLET PO PRN ×2 (16:01)
[2021-08-17] MEDS ORDERED: MAG HYDROX/AL HYDROX/SIMETH 30 ML UNIT-DOSE CUP PO PRN (16:01)
[2021-08-17] MEDS ORDERED: ACETAMINOPHEN 325 MG TABLET (FP) PO PRN ×2 (16:01)
[2021-08-17] MEDS ORDERED: BUPRENORPHINE HCL 150 MCG, BUPRENORPHINE HCL 75 MCG BC PRN (16:01)
[2021-08-17] MEDS ORDERED: ONDANSETRON *ODT* 4 MG TABLET SL PRN (16:01)
[2021-08-17] MEDS ORDERED: IBUPROFEN 400 MG TABLET (FP) PO PRN (16:01)
[2021-08-17] MEDS ORDERED: LOPERAMIDE HCL 2 MG CAPSULE PO PRN (16:01)
[2021-08-17] MEDS ORDERED: BENZOCAINE/MENTHOL (CHLORASEPTIC ) LOZENGE MM PRN (16:01)
[2021-08-17] MEDS ORDERED: DICYCLOMINE HCL 10 MG CAPSULE PO PRN (16:01)
[2021-08-17] MEDS ORDERED: MAGNESIUM CITRATE 300 ML BOTTLE PO PRN (16:01)
[2021-08-17] MEDS ORDERED: cloNIDine HCL 0.1 MG TABLET PO ONE (16:01)
[2021-08-17 20:11] VITALS: BMI 20.5
[2021-08-17] MEDS ORDERED: BUPRENORPHINE HCL 75 MCG FILM BC ONE (21:55)
[2021-08-17] MEDS ORDERED: BUPRENORPHINE HCL 150 MCG FILM BC ONE (21:55)
[2021-08-17] MEDS: MELATONIN 5 MG TABLETS PO SCH (23:11)
[2021-08-17] MEDS: THIAMINE HCL 100 MG TABLET (FP) PO SCH (23:11)
[2021-08-17] MEDS: hydrOXYzine PAMOATE 25 MG CAPSULE (FP) PO SCH (23:12)
[2021-08-17] MEDS: diazePAM 5 MG TABLET PO SCH (23:12)
[2021-08-18] MEDS ORDERED: BUPRENORPHINE HCL 150 MCG, BUPRENORPHINE HCL 75 MCG BC PRN
[2021-08-18] MEDS: PRENATAL VITAMINS W/ FOLIC ACID TABLET (FP) PO SCH ×2 (00:13→10:29)
[2021-08-18] MEDS: diazePAM 5 MG TABLET PO SCH ×6 (00:14→22:37)
[2021-08-18] MEDS: hydrOXYzine PAMOATE 25 MG CAPSULE (FP) PO SCH ×6 (00:14→22:37)
[2021-08-18] MEDS ORDERED: BUPRENORPHINE HCL 75 MCG FILM BC ONE ×3 (05:04→18:30)
[2021-08-18] MEDS ORDERED: BUPRENORPHINE HCL 150 MCG FILM BC ONE ×3 (05:04→18:29)
[2021-08-18] MEDS: BUPRENORPHINE HCL 150 MCG, BUPRENORPHINE HCL 75 MCG BC SCH ×2 (06:15→18:22)
[2021-08-18] MEDS: NICOTINE 10 MG CARTRIDGE (INHALER) IH PRN (09:00)
[2021-08-18] MEDS: cloNIDine HCL 0.1 MG TABLET PO PRN (10:31)
[2021-08-18 12:18] LABS: HEMATOCRIT 39.7 % (32.4-45.2); MCH 28.1 pg (25.7-33.7); MCHC 32.9 g/dl (32.0-36.0); MEAN CELL VOLUME 85.6 fl (80-96); MEAN PLT VOLUME 8.8 fl (7.5-11.1); PLATELET COUNT 217 10^3/uL (134-434); RBC 4.64 M/mm3 (3.60-5.2); RDW 13.7 % (11.6-15.6); WHITE BLOOD COUNT 6.6 K/mm3 (4.0-10.0)
[2021-08-18] MEDS ORDERED: VITAMINS A AND D TOPICAL OINTMENT 60 GM TUBE TP PRN (12:19)
[2021-08-18 12:28] LABS: ALBUMIN 3.4 g/dl (3.4-5.0); CALCIUM 9.1 mg/dL (8.5-10.1)
[2021-08-18 12:29] LABS: BLOOD UREA NITROGEN 9.9 mg/dL (7-18)
[2021-08-18 12:31] LABS: CREATININE 0.7 mg/dL (0.55-1.3)
[2021-08-18 12:33] LABS: BILIRUBIN,TOTAL 0.6 mg/dL (0.2-1); TOT PROT 7.7 g/dl (6.4-8.2)
[2021-08-18] MEDS: GABAPENTIN 300 MG CAPSULE PO SCH ×2 (15:24→22:37)
[2021-08-18] MEDS: QUEtiapine FUMARATE 50 MG TABLET PO SCH (22:37)
[2021-08-18] MEDS: MELATONIN 5 MG TABLETS PO SCH (22:37)
[2021-08-18] MEDS: THIAMINE HCL 100 MG TABLET (FP) PO SCH (22:37)
[2021-08-19] MEDS: GABAPENTIN 300 MG CAPSULE PO SCH ×3 (07:17→22:28)
[2021-08-19] MEDS: hydrOXYzine PAMOATE 25 MG CAPSULE (FP) PO SCH ×5 (07:17→22:28)
[2021-08-19] MEDS: BUPRENORPHINE HCL 450 MCG FILM BC SCH ×2 (07:18→17:50)
[2021-08-19] MEDS: diazePAM 5 MG TABLET PO SCH ×3 (07:25→22:28)
[2021-08-19] MEDS: METHOCARBAMOL 500 MG TABLET PO PRN ×2 (09:54→22:28)
[2021-08-19] MEDS: PRENATAL VITAMINS W/ FOLIC ACID TABLET (FP) PO SCH (09:54)
[2021-08-19 12:19] LABS: HIV INTERPRETATION NEGATIVE (NEGATIVE)
[2021-08-19] MEDS: NICOTINE POLACRILEX 4 MG GUM BUC PRN ×2 (13:48→18:05)
[2021-08-19 14:12] LABS: SARS-CoV-2 NAA Not Detected (Not Detected)
[2021-08-19] MEDS: MELATONIN 5 MG TABLETS PO SCH (22:28)
[2021-08-19] MEDS: QUEtiapine FUMARATE 50 MG TABLET PO SCH (22:28)
[2021-08-19] MEDS: THIAMINE HCL 100 MG TABLET (FP) PO SCH (22:29)
[2021-08-19] MEDS: NICOTINE 10 MG CARTRIDGE (INHALER) IH PRN (22:32)
[2021-08-20] MEDS ORDERED: BUPRENORPHINE/NALOXONE 4 MG/1 MG FILM PACKET SL SCH (06:00)
[2021-08-20] MEDS: diazePAM 5 MG TABLET PO SCH ×2 (06:40→17:56)
[2021-08-20] MEDS: GABAPENTIN 300 MG CAPSULE PO SCH ×3 (06:41→22:31)
[2021-08-20] MEDS: hydrOXYzine PAMOATE 25 MG CAPSULE (FP) PO SCH ×5 (07:38→22:35)
[2021-08-20] MEDS: PRENATAL VITAMINS W/ FOLIC ACID TABLET (FP) PO SCH (10:14)
[2021-08-20] MEDS: NICOTINE POLACRILEX 4 MG GUM BUC PRN (14:06)
[2021-08-20] MEDS: cloNIDine HCL 0.1 MG TABLET PO PRN (17:54)
[2021-08-20] MEDS ORDERED: NALOXONE HCL (KLOXXADO) 8 MG SPRAY NS SCH (18:30)
[2021-08-20] MEDS: NICOTINE 10 MG CARTRIDGE (INHALER) IH PRN (18:51)
[2021-08-20] MEDS: QUEtiapine FUMARATE 50 MG TABLET PO SCH (22:31)
[2021-08-20] MEDS: MELATONIN 5 MG TABLETS PO SCH (22:34)
[2021-08-20] MEDS: THIAMINE HCL 100 MG TABLET (FP) PO SCH (22:35)
[2021-08-21] MEDS ORDERED: diazePAM 5 MG TABLET PO ONE (06:00)
[2021-08-21] MEDS ORDERED: BUPRENORPHINE/NALOXONE 8 MG/2 MG FILM PACKET SL ONE (06:00)
[2021-08-21] MEDS: hydrOXYzine PAMOATE 25 MG CAPSULE (FP) PO SCH ×2 (06:32→10:30)
[2021-08-21] MEDS: GABAPENTIN 300 MG CAPSULE PO SCH (06:32)
[2021-08-21 09:20] VITALS: BP 113/83; PULSE 100; TEMP 97.6
[2021-08-21] MEDS ORDERED: hydrOXYzine PAMOATE 25 MG CAPSULE (FP) PO PRN (10:06)
[2021-08-21] MEDS: PRENATAL VITAMINS W/ FOLIC ACID TABLET (FP) PO SCH (10:29)
[2021-08-21] MEDS: NICOTINE POLACRILEX 4 MG GUM BUC PRN (10:43)
== END 2021-08-21 11:07 | disposition home or self-care (01) | DRG 773 ==
LOC: YASAS 15:00 → Y6N 21:26
PROVIDERS: ADMIT Allergy & Immunology; ATTEND Allergy & Immunology
PROC: HZ2ZZZZ Detoxification Services for Substance Abuse Treatment (ICD-10-PCS; principal; 2021-08-17)
DX: F11.23 Opioid dependence with withdrawal (principal); F13.230 Sedative, hypnotic or anxiolytic dependence with withdrawal, uncomplicated; F14.20 Cocaine dependence, uncomplicated; F12.20 Cannabis dependence, uncomplicated; F17.210 Nicotine dependence, cigarettes, uncomplicated; F19.282 Other psychoactive substance dependence with psychoactive substance-induced sleep disorder; F19.280 Other psychoactive substance dependence with psychoactive substance-induced anxiety disorder; F19.24 Other psychoactive substance dependence with psychoactive substance-induced mood disorder; F32.A Depression, unspecified; F90.9 Attention-deficit hyperactivity disorder, unspecified type; R63.6 Underweight; Z68.20 Body mass index [BMI] 20.0-20.9, adult
CPT/HCPCS: 36415; 80053; 82962; 85027; 86780; 86803; 87389; 87517; 87522; 93005; 93010; C9803-CS; J0735; U0003; U0005